=== PATIENT | female | born 1950 | race Caucasian/White ===

== ENCOUNTER 2017-01-25 10:18 | Inpatient (IN) | payer OTHER ==
[~2017-01-25] VITALS: Ht 154.9 cm; Wt 73.4 kg
[~2017-01-25 10:18] MED LIST: ALBIPROI; ALBU90OI61 INH; ALPR.5 PO; AMIT25; AMIT25 PO; AMLO10 PO; AMLO5 PO; ATEN100 PO; ATEN25 PO; ATEN50 PO; BECL25NI; BIOTIN2500 MCG PO; BIOTIN5 MG PO; BISA10S PR; BUSP5 PO; Buspirone HCl7.5 MG PO; CALCIUM PO; CARI350 PO; CELE200 PO; CIPR500 PO; CITA20 PO; CLON.5 PO; CONEST.3 PO; CYCL10 PO; DIAZ5; DIAZ5 PO; DICLOFENAC SOD100 G1 TP; Desyrel50 MG PO; ERGO50000 PO; FLUT44OIA INH; Flovent Diskus50 MCG IH; HYDACE5 PO; HYDACE5325 PO; HYDACE7.5 PO; HYDHCL25 PO; HYDR1TAB94 PO; HYDRA25; LORTAB 7.5-3251 EACH PO; MULVITMIND PO; NAPR550 PO; OMEG1CAP30 PO; OXYACE5T PO; OXYACE7.5T PO; OXYC5; OXYC80ER; Omega-31000 MG PO; PROLIA60 MG/1 ML SQ; Percocet 5-3251 EACH PO; Probenecid-Col1 EACH PO; RXCYCL10 PO; RXHYD5325 PO; RXHYDACE PO; RXNAPNA550 PO; RXONDA4ODT MM; RXOXYACE PO; TRAM50 PO; TRIAOI; TRIHYD253A PO; TRIHYD5075 PO; VITAMIN B 12 SL; XARELTO10 MG PO
[2017-01-31] MEDS ORDERED: ATEN25 PO (12:37)
--- NOTE | 2017-01-31 12:53 | NUR ---
History, Chart, Medications and Allergies reviewed before start of procedure.Patient confirms NPO status and agrees with scheduled surgery.lungs with wheezes, notified dr. tellez. Nela Paws warming gown applied. Patient reports completing Chlorhexadine shower X2 prior to admission to hospital.Surgical site prepped with 2% Chlorhexidine cloth wipe.
--- NOTE | 2017-01-31 16:35 | NUR ---
X-RAY DELAYED DUE TO STAFFING
[2017-02-01 04:24] LABS: BASOPHILS ABSOLUTE AUTO 0.01 K/mm3 (0.00-0.23); BASOPHILS PERCENT AUTO 0 % (0-2); EOSINOPHILS PERCENT AUTO 0 % (0-6); Hemoglobin 9.2 g/dL (11.5-16.0); IMMATURE GRAN ABSOLUTE AUTO 0.01 K/mm3 (0.00-0.10); IMMATURE GRAN PERCENT AUTO 0 % (0-1); LYMPHOCYTES PERCENT AUTO 5 % (21-46); MONOCYTES ABSOLUTE AUTO 0.39 K/mm3 (0.16-1.47); MONOCYTES PERCENT AUTO 4 % (4-13); Mean Corpuscular HGB 29.8 pg (26.0-34.0); Mean Corpuscular HGB Conc 32.9 g/dL (31.5-36.5); Mean Corpuscular Volume 91 fL (80-100); Mean Platelet Volume 9.4 fL (9.1-12.4); NEUTROPHILS ABSOLUTE AUTO 8.97 K/mm3 (1.96-9.15); NEUTROPHILS PERCENT AUTO 91 % (41-73); Platelet Count 256 K/mm3 (150-400); RDW Coefficient Variation 12.8 % (11.7-14.2); RDW Standard Deviation 42.5 fL (35.1-46.3); Red Blood Cell Count 3.09 M/mm3 (3.80-5.20); White Blood Cell Count 9.88 K/mm3 (4.00-11.30)
[2017-02-01 04:41] LABS: Anion Gap 5 mmol/L (6-16); Blood Urea Nitrogen 10 mg/dL (8-24); Bun/Creatinine Ratio 16.9 (12.0-20.0); CO2, Blood 30 mmol/L (21-32); Calcium, Blood 9.2 mg/dL (8.5-10.1); Chloride, Blood 98 mmol/L (98-108); Creatinine, Blood 0.59 mg/dL (0.40-1.00); Glomerular Filtration Rate >60 (60-); Glucose, Blood 216 mg/dL (70-99); Potassium, Blood 4.6 mmol/L (3.5-5.5); Sodium, Blood 133 mmol/L (136-145)
--- NOTE | 2017-02-01 04:54 | NUR ---
SUMMARY: PT IS POD1 R TKA. NO ACUTE CHANGE, PT HAS BEEN VERY PAINFUL THIS SHIFT. DR. BELTRAN AND DR. HINTON NOTIFIED. SEE NEW ORDERS. SURGICAL SITE WNL, CMS INTACT. PT HAS BEEN UP MULTIPLE TIMES TO BATHROOM AND TO ATTEMPT REPOSITIONING. PT CONTINUES TO RATE PAIN 7/10 THIS MORNING, WILL MONITOR AND POSSIBILY CALL DR. EUCEDA AGAIN. PT IS VOIDING AND TOLERATING PO. NO NAUSEA. PT CONTINUES TO BE SEMI HYPOTENSIVE 100'S/50S. PT ASYMPTOMATIC. PT USING CALL LIGHT, NO ACUTE SAFETY CONCERNS AT THIS TIME. WILL PASS REPORT TO DAY RN.
--- NOTE | 2017-02-01 14:10 | NUR ---
PT IN BED C/O STIFFNESS AND PAIN FROM KNEE TO BUTTOCKS ON RIGHT SIDE. UNABLE TO PROGRESS WELL WITH THERAPY. DECREASED ROM THIS AFTERNOON, CPM APPLIED 75/0. DISCUSSED IMPORTANCE OF MOBILITY, PROPER ELEVATION PT PLACED PILLOWS UNDER KNEE "BECAUSE IT FEELS BETTER" EDUCATED ON PLACEMENT OF PILLOW OR TOWEL ROLL UNDER ANKLE OR FULL LENGTH OF LEG ONLY NOT JUST UNDER THE KNEE. ICE APPLIED, MEDICATED FOR PAIN BY PRIMARY RN, PT RESTING.
--- NOTE | 2017-02-01 16:10 | NUR ---
SHIFT SUMMARY POD#1 R TKA. PAIN NOT MANAGED WELL: 10 MG OXY AND 1 MG DILAUDID Q4. DID NOT PASS PHYSICAL THERAPY. PLAN IS TO WORK ON PAIN MANAGEMENT AND ACTIVITY TO BE DC'D TOMORROW. AMB MIRANDA W/FWW. VSS, RA. AFTAB PO. AQUACEL CDI. PREFERS ICE BAG TO POLAR ALEXI HERNANDEZ, SCDS ON. ELEVATED IN CHAIR T/O SHIFT. WILL CTM AND TX PER EMAR UNTIL REPORT GIVEN TO ONCOMING NOC RN.
--- NOTE | 2017-02-01 18:08 | NUR ---
TALKED TO PHARMACIST ABOUT OXYCONTIN ORDER FROM LAST NIGHT. PHAR DID NOT KNOW WHY THIS ORDER WAS NOT ENTERED BUT SAID 30 MG COULD BE GIVEN IN 3 10 MG; RENEWED ORDER.
--- NOTE | 2017-02-02 03:45 | NUR ---
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 PT IS REPORTING EXCESSIVE PAIN WITH 1 MG DILAUDID Q4 AND 10 MG ROXICODONE Q4. PT IS POD 2 NOW FROM R TKA. AQUACEL DRESSING IN PLACE WITH SMALL AMOUNT DARK SANGINOUS DRAINAGE. KNEE IS NOTICEABLY SWOLLEN COMPARED TO UNAFFECTED EXTREMITY. SKIN HAS BECOME TIGHTER AND THERE IS REDNESS AND HEAT SURROUNDING THE KNEE. BRUISING NOTED ON EITHER SIDE OF AQUACEL DRESSING. MD ADVISED OF THIS AND PAIN MEASURES BEING TAKEN. MD ADVISED TO ELEVATE EXTREMITY AND APPLY ICE PACK, CONTINUE TO MONITOR
--- NOTE | 2017-02-02 04:01 | NUR ---
SHIFT SUMMARY PT IS POD 2 FROM R TKA. 2 PERSON SBA W/FWW. PT VSS T/O SHIFT. GOOD PO INTAKE. PT VERY PAINFUL T/O SHIFT. PAIN MED SCHEDULE ATTEMPT TO CHANGE TO ALTERNATE 1 MG DILAUDID AND 10 MG ROXICODONE Q2. MD CONSULTED REGARDING INCREASED SWELLING, HEAT, AND REDNESS ON OPERATED EXTREMITY AND POORLY CONTROLLED PAIN. (PLEASE SEE NOTE) EXTREMITY ELEVATED AND ICE PACK PLACED. PT RESTED ON AND OFF T/O SHIFT.
[2017-02-02] MEDS ORDERED: OXYC15ER PO (11:00)
[2017-02-02] MEDS ORDERED: Percocet 5-3251 EACH PO (11:01)
[2017-02-02] MEDS ORDERED: XARELTO10 MG PO (11:03)
--- NOTE | 2017-02-02 14:40 | NUR ---
PATIENT D/C'D LAUREANO WITH SPOUSE AT THIS TIME; BOTH STATE UNDERSTANDING OF MEDS, WOUND CARE, PT, F/U APPT,ETC. MO ACUTE CHANGES OR C/O.
--- NOTE | 2017-02-02 15:16 | NUR ---
02/02/17 1516 Theresa Madrid REMOVED PINS FROM CHARGES PER RUBEN Hernandez
[2017-02-07] MEDS ORDERED: Zofran Odt4 MG PO (05:24)
[2017-02-07] MEDS ORDERED: GAVILAX17 GM PO (05:24)
== END 2017-02-02 14:24 | disposition home or self-care (01) | DRG 470 ==
LOC: SURS 01-31 11:39 → PRE IP 01-31 13:30 → SURS 01-31 17:37
PROVIDERS: ADMIT Orthopaedic Surgery
PROC: 0SRC0JA Replacement of Right Knee Joint with Synthetic Substitute, Uncemented, Open Approach (ICD-10-PCS; principal; 2017-01-31 13:30)
DX: M17.11 Unilateral primary osteoarthritis, right knee (principal); F32.9 Major depressive disorder, single episode, unspecified; I10 Essential (primary) hypertension; K21.9 Gastro-esophageal reflux disease without esophagitis; J45.909 Unspecified asthma, uncomplicated; Z87.891 Personal history of nicotine dependence; Z96.652 Presence of left artificial knee joint; Z79.899 Other long term (current) drug therapy; Z88.8 Allergy status to other drugs, medicaments and biological substances; Z91.048 Other nonmedicinal substance allergy status
CPT/HCPCS: 36415; 73560-RT; 80048; 85025; 86850; 86900; 86901; 88300; 94762; 97110; 97116; 97161; 97530; C1776; G8978; G8979; J0171; J0690; J0735; J1100; J1170; J1885; J2250; J2270; J2405; J2795; J3010; J7120

== ENCOUNTER → 2018-08-28 | Outpatient (CLI) | payer MEDICARE ==
[~2018-08-28] MED LIST changes: +GAVILAX17 GM PO; +OXYC15ER PO; +Zofran Odt4 MG PO
[2018-08-28 16:24] LABS: Microalbumin, Urine Quant. <5.000 mg/L (0.000-20.000); Protein, Urine Quantitative <5.0 mg/dL (0.0-11.9)
== END | disposition home or self-care (01) ==
LOC: LAB SHORT 15:04 → LAB 15:04 → LAB FUT 07-25 18:00
PROVIDERS: Internal Medicine Nephrology
DX: N18.2 Chronic kidney disease, stage 2 (mild) (principal); D63.1 Anemia in chronic kidney disease; N25.81 Secondary hyperparathyroidism of renal origin; E55.9 Vitamin D deficiency, unspecified; E78.00 Pure hypercholesterolemia, unspecified; R76.9 Abnormal immunological finding in serum, unspecified; R94.5 Abnormal results of liver function studies; R94.6 Abnormal results of thyroid function studies
CPT/HCPCS: 81050; 82043; 82570; 84156

== ENCOUNTER 2023-03-24 02:40 | Emergency (ER) | payer MEDICARE ==
[~2023-03-24] VITALS: Ht 157.5 cm; Wt 68.0 kg
[2023-03-24 03:05] LABS: BASOPHILS ABSOLUTE AUTO 0.06 K/mm3 (0.00-0.23); BASOPHILS PERCENT AUTO 1 % (0-2); EOSINOPHILS ABSOLUTE AUTO 0.08 K/mm3 (0.00-0.68); EOSINOPHILS PERCENT AUTO 1 % (0-6); Hematocrit 37.3 % (33.0-51.0); Hemoglobin 12.5 g/dL (11.5-16.0); IMMATURE GRAN ABSOLUTE AUTO 0.06 K/mm3 (0.00-0.10); IMMATURE GRAN PERCENT AUTO 1 % (0-1); LYMPHOCYTES ABSOLUTE AUTO 1.15 K/mm3 (0.84-5.20); LYMPHOCYTES PERCENT AUTO 11 % (21-46); MONOCYTES ABSOLUTE AUTO 1.34 K/mm3 (0.16-1.47); MONOCYTES PERCENT AUTO 12 % (4-13); Mean Corpuscular HGB 29.8 pg (26.0-34.0); Mean Corpuscular HGB Conc 33.5 g/dL (31.5-36.5); Mean Corpuscular Volume 89 fL (80-100); Mean Platelet Volume 9.6 fL (9.1-12.4); NEUTROPHILS ABSOLUTE AUTO 8.15 K/mm3 (1.96-9.15); NEUTROPHILS PERCENT AUTO 75 % (41-73); Platelet Count 270 K/mm3 (150-400); RDW Coefficient Variation 12.3 % (11.7-14.2); RDW Standard Deviation 40.4 fL (35.1-46.3); Red Blood Cell Count 4.19 M/mm3 (3.80-5.20); White Blood Cell Count 10.84 K/mm3 (4.00-11.30)
[2023-03-24 03:26] LABS: Albumin, Blood 3.7 g/dL (3.4-5.0); Albumin/Globulin Ratio 0.9 (0.8-1.8); Bilirubin, Total 0.8 mg/dL (0.1-1.0); Bun/Creatinine Ratio 19.3 (12.0-20.0); Calcium, Blood 8.6 mg/dL (8.5-10.1); Creatinine, Blood 0.73 mg/dL (0.40-1.00); Globulin, Blood 4.1 g/dL (2.2-4.0); Total Protein, Blood 7.8 g/dL (6.4-8.2)
[2023-03-24 04:00] LABS: Influenza A, PCR NEGATIVE (NEGATIVE); Influenza B, PCR NEGATIVE (NEGATIVE); Resp Syncytial Virus, PCR NEGATIVE (NEGATIVE); SARS-Cov-2 (COVID-19) PCR, MMC NEGATIVE (NEGATIVE)
[2023-03-24 04:15] VITALS: BP 108/93
[2023-03-24] MEDS ORDERED: Prednisone20 MG PO (04:19)
== END 2023-03-24 04:39 | disposition home or self-care (01) ==
LOC: ER 02:40
PROVIDERS: Emergency Medicine
DX: B34.9 Viral infection, unspecified (principal); Z88.8 Allergy status to other drugs, medicaments and biological substances; Z88.6 Allergy status to analgesic agent; Z91.048 Other nonmedicinal substance allergy status; Z79.899 Other long term (current) drug therapy; J45.909 Unspecified asthma, uncomplicated; Z87.891 Personal history of nicotine dependence
CPT/HCPCS: 0241U; 71045; 80053; 83605; 83880; 84484; 85025; 94640; 94664; 96374; 96375; 99285-25; J1885; J2930

== ENCOUNTER → 2025-01-12 | Outpatient (CLI) | payer MEDICARE ==
[~2025-01-12] MED LIST changes: +Prednisone20 MG PO
[2025-01-12 15:38] LABS: BASOPHILS ABSOLUTE AUTO 0.03 K/mm3 (0.00-0.23); BASOPHILS PERCENT AUTO 1 % (0-2); EOSINOPHILS ABSOLUTE AUTO 0.08 K/mm3 (0.00-0.68); EOSINOPHILS PERCENT AUTO 2 % (0-6); Hematocrit 37.1 % (33.0-51.0); Hemoglobin 12.2 g/dL (11.5-16.0); IMMATURE GRAN ABSOLUTE AUTO 0.01 K/mm3 (0.00-0.10); IMMATURE GRAN PERCENT AUTO 0 % (0-1); LYMPHOCYTES ABSOLUTE AUTO 1.09 K/mm3 (0.84-5.20); LYMPHOCYTES PERCENT AUTO 27 % (21-46); MONOCYTES ABSOLUTE AUTO 0.40 K/mm3 (0.16-1.47); MONOCYTES PERCENT AUTO 10 % (4-13); Mean Corpuscular HGB Conc 32.9 g/dL (31.5-36.5); Mean Corpuscular Volume 90 fL (80-100); NEUTROPHILS ABSOLUTE AUTO 2.49 K/mm3 (1.96-9.15); NEUTROPHILS PERCENT AUTO 61 % (41-73); NRBC ABSOLUTE 0.00 K/mm3 (0.00-0.02); NRBC Auto 0.0 /100 WBC (0.0-0.2); Platelet Count 277 K/mm3 (150-400); RDW Coefficient Variation 12.7 % (11.7-14.2); RDW Standard Deviation 41.1 fL (35.1-46.3)
[2025-01-12 15:50] LABS: Alanine Aminotransfer (ALT/SGP 14.0 U/L (12-78); Albumin, Blood 3.9 g/dL (3.4-5.0); Albumin/Globulin Ratio 1.1 (0.8-1.8); Anion Gap 10.0 mmol/L (3-11); Aspartate Aminotrans (AST/SGOT 16.0 U/L (12-37); Bilirubin, Total 0.4 mg/dL (0.1-1.0); Blood Urea Nitrogen 9.0 mg/dL (8-24); CO2, Blood 27.0 mmol/L (21-32); Calcium, Blood 7.9 mg/dL (8.5-10.1); Chloride, Blood 102.0 mmol/L (98-108); Creatinine, Blood 0.7 mg/dL (0.40-1.00); Globulin, Blood 3.4 g/dL (2.2-4.0); Glucose, Blood 85.0 mg/dL (70-99); Potassium, Blood 4.7 mmol/L (3.5-5.5); Sodium, Blood 134.0 mmol/L (136-145); Total Protein, Blood 7.3 g/dL (6.4-8.2)
== END ==
LOC: LAB SHORT 15:34 → LAB 15:34
PROVIDERS: Physician Assistant
DX: J01.90 Acute sinusitis, unspecified (principal)
CPT/HCPCS: 80053; 85025